=== PATIENT | male | born 1955 | race Caucasian/White ===

== ENCOUNTER → 2017-07-31 12:26 | Outpatient (CLI) | payer MEDICAID | END | disposition home or self-care (01) | LOC: EDSEX 12:26 → D.RT 12:26 | DX: J44.9 Chronic obstructive pulmonary disease, unspecified (principal) ==

== ENCOUNTER → 2019-06-08 07:53 | Outpatient (CLI) | payer MEDICAID | END | disposition home or self-care (01) | LOC: D.US 07:53 | PROVIDERS: ATTEND Family Medicine | DX: R22.1 Localized swelling, mass and lump, neck (principal) ==